=== PATIENT | male | born 1965 | race Caucasian/White ===

== ENCOUNTER 2020-08-21 21:25 | Emergency (ER) | payer OTHER ==
[~2020-08-21] VITALS: Ht 180.3 cm; Wt 75.9 kg
[2020-08-22 00:45] VITALS: BP 140/78
== END 2020-08-22 01:00 | disposition home or self-care (01) ==
LOC: EMS 21:30
DX: T18.5XXA Foreign body in anus and rectum, initial encounter (principal); F15.90 Other stimulant use, unspecified, uncomplicated; X58.XXXA Exposure to other specified factors, initial encounter; Y93.89 Activity, other specified; Y92.89 Other specified places as the place of occurrence of the external cause; Y99.8 Other external cause status
CPT/HCPCS: 74022; 74176; 99284; Z7502